=== PATIENT | female | born 1975 | race African-American/Black ===

== ENCOUNTER 2018-03-10 14:28 | Outpatient (CLI) | payer OTHER | END 2018-03-10 14:29 | disposition home or self-care (01) | LOC: BICMAMMO 14:28 | PROVIDERS: ATTEND Obstetrics & Gynecology | DX: Z12.31 Encounter for screening mammogram for malignant neoplasm of breast (principal); Z80.3 Family history of malignant neoplasm of breast | CPT/HCPCS: 77063; 77067 ==

== ENCOUNTER 2021-11-28 17:47 | Outpatient (CLI) | payer BC ==
[2021-11-28 18:33] LABS: Bilirubin Neg (Negative); Blood, Urine Negative (Negative); Clarity Clear (Clear); Glucose, Urine (Dipstick) Normal (Negative); Ketone, Urine Negative (Negative); Leukocyte Negative (Negative); Nitrite Negative (Negative); Protein, Urine (Dipstick) 15 mg/dl (Neg-Trace); Specific Gravity, Urine 1.015 (1.002-1.036); Urobilinogen Normal mg/dL (Less than 2); pH, Urine 6.5 (5.0-9.0)
[2021-11-28 18:37] LABS: #Eosinphils 0.3 10x3/uL (0.0-0.5); #Monocytes 0.5 10x3/uL (0.0-1.1); #Neutrophils 2.5 10x3/uL (1.5-8.4); %Basophils 0.4 % (0.0-2.0); %Lymphocytes 32.9 % (18.0-47.0); %Monocytes 9.9 % (0.0-10.0); %Neutrophils 50.6 % (40.0-75.0); Hemoglobin 13.4 g/dL (12.0-15.5); Mean Corpuscular HGB CONC 33.2 g/dL (32.0-36.0); Mean Corpuscular Volume 84.5 fl (81.6-98.3); Mean Platelet Volume 10.7 fl (7.4-10.4); Platelet Count 234 10x3/uL (150-450); RBC Distribution Width 13.7 % (11.5-14.5); Red Blood Cell (RBC) Count 4.78 10x6/uL (3.90-5.03); White Blood Cell (WBC) Count 4.8 10x3/uL (3.5-10.5)
[2021-11-29 01:48] LABS: Hemoglobin A1c 5.5 % (4.0-6.0)
[2021-11-29 17:41] LABS: SARS-CoV-2 PCR by NAA Not Detected (NotDetected)
== END 2021-11-28 17:48 | disposition home or self-care (01) ==
LOC: LABBT 17:47
PROVIDERS: ATTEND Orthopaedic Surgery Hand Surgery
DX: Z01.812 Encounter for preprocedural laboratory examination (principal); M65.331 Trigger finger, right middle finger; M65.332 Trigger finger, left middle finger; M65.341 Trigger finger, right ring finger; M65.342 Trigger finger, left ring finger; Z20.822 Contact with and (suspected) exposure to COVID-19
CPT/HCPCS: 81003; 83036; 85025; U0003; U0005

== ENCOUNTER 2021-12-01 07:34 | Day surgery (SDC) | payer BC ==
[2021-11-29 13:09] VITALS: BMI 36.2
[2021-12-01] MEDS ORDERED: Bupivacaine PF 0.5% 30 ML VIAL ONE ×2 (11:28→11:29)
[2021-12-01] MEDS ORDERED: Bacitracin Zinc Ointment 30 gm TUBE ONE (11:28)
[2021-12-01] MEDS ORDERED: Betamet Acet/Betamet Na Ph 30 MG/5 ML VIAL ONE (11:28)
[2021-12-01] MEDS ORDERED: Neomycin-Polymyxin 1 ML AMP ONE (11:32)
[2021-12-01] MEDS ORDERED: Midazolam HCl 2 mg/2 ml Vial ONE (11:36)
[2021-12-01] MEDS ORDERED: Fentanyl 100 MCG/2 ML VIAL ONE (11:36)
[2021-12-01] MEDS ORDERED: HYDROmorphone 2 MG/ML VIAL ONE (11:36)
[2021-12-01] MEDS ORDERED: ceFAZolin 2 GM/Dextrose 50 ML IVPB ONE (11:45)
[2021-12-01] MEDS ORDERED: Dexamethasone 20 MG/5 ML VIAL ONE (11:51)
[2021-12-01] MEDS ORDERED: Ondansetron PF 4 MG/2 ML Vial ONE (11:51)
[2021-12-01] MEDS ORDERED: Lidocaine 1% PF 5 ML VIAL ONE (11:51)
[2021-12-01] MEDS ORDERED: PROPOFOL 200 MG/20 ML VIAL ONE (11:51)
[2021-12-01] MEDS ORDERED: PHENYLEPHRINE-NS 100 MCG/ML 10 ML SYRINGE ONE (11:51)
[2021-12-01] MEDS ORDERED: Ketorolac Tromethamine 30 MG/ML VIAL ONE ×2 (13:29→13:30)
[2021-12-01] MEDS ORDERED: Promethazine HCl 25 MG/ML VIAL ONE (14:32)
== END 2021-12-01 15:43 | disposition home or self-care (01) ==
LOC: SDC 07:34
PROVIDERS: ATTEND Orthopaedic Surgery Hand Surgery
PROC: 0LN80ZZ Release Left Hand Tendon, Open Approach (ICD-10-PCS; principal; 2021-12-01)
PROC: 0LN70ZZ Release Right Hand Tendon, Open Approach (ICD-10-PCS; principal; 2021-12-01)
DX: M65.332 Trigger finger, left middle finger (principal); M65.342 Trigger finger, left ring finger; M65.331 Trigger finger, right middle finger; M65.341 Trigger finger, right ring finger; I10 Essential (primary) hypertension; Z79.899 Other long term (current) drug therapy; Z88.8 Allergy status to other drugs, medicaments and biological substances
CPT/HCPCS: J0690; J0702; J1170; J1885; J2250; J2550; J3010; S0020

== ENCOUNTER 2022-09-17 09:42 | Outpatient (CLI) | payer BC, OTHER | END 2022-09-17 09:43 | disposition home or self-care (01) | LOC: DTY/OP 09:42 | PROVIDERS: ATTEND Surgery | DX: E66.01 Morbid (severe) obesity due to excess calories (principal); Z71.3 Dietary counseling and surveillance | CPT/HCPCS: 97802 ==